=== PATIENT | male | born 1990 | race African-American/Black ===

== ENCOUNTER 2016-12-13 20:16 | Emergency (ER) | payer OTHER ==
[2016-12-13 20:30] VITALS: BP 132/82; PULSE 103; RESP 16; TEMP 99.7
--- NOTE | 2016-12-13 21:08 | ED ---
ENT HPI - General Chief complaint: ENT Stated complaint: Dental Pain Time Seen by Provider: 12/13/16 20:34 Source: patient Mode of arrival: ambulatory Limitations: no limitations - History of Present Illness Initial comments: Patient is a 26-year-old male presents to the emergency room for evaluation of dental pain. Patient states he has multiple broken teeth that have been causing him pain for the past 2-3 days. Patient states he's been using natural remedies with no relief of symptoms. Patient does state he has an appointment on Sunday with a dentist. Patient states his last dental appointment was 4 years ago. Patient states he's having extreme pain in his right lower teeth. Patient denies fevers or chills. Patient denies ear pain. Patient denies throat pain. Patient denies any facial edema. Patient denies trouble swallowing. Patient denies any recent dental trauma. - Related Data Previous Rx's Medication Instructions Recorded Clindamycin [Cleocin] 300 mg PO Q6H #40 capsule 12/13/16 Ibuprofen [Motrin] 600 mg PO Q6HR PRN #20 tab 12/13/16 Allergies Allergy/AdvReac Type Severity Reaction Status Date / Time Penicillins Allergy Unknown Verified 12/13/16 20:31 Childhood Review of Systems ROS Statement: Those systems with pertinent positive or pertinent negative responses have been documented in the HPI. ROS Other: All systems not noted in ROS Statement are negative. Past Medical History Past Medical History: No Reported History History of Any Multi-Drug Resistant Organisms: None Reported Past Surgical History: No Surgical Hx Reported Past Psychological History: No Psychological Hx Reported Smoking Status: Never smoker Past Alcohol Use History: None Reported Past Drug Use History: None Reported General Exam - General Exam Comments Initial Comments: sitting in exam room, no acute distress. Limitations: no limitations General appearance: alert, in no apparent distress Head exam: Present: atraumatic, normocephalic, normal inspection Eye exam: Present: normal appearance Expanded Mouth exam: Present: normal external inspection Teeth exam: Present: dental caries, fractured tooth # (fractured and deteriorating teeth numbers 30-32), dental tenderness # (30-32) Throat exam: normal inspection Neck exam: Present: normal inspection, full ROM. Absent: tenderness, lymphadenopathy Respiratory exam: Absent: respiratory distress Extremities exam: Present: normal inspection Back exam: Present: normal inspection Neurological exam: Present: alert, oriented X3, CN II-XII intact, normal gait Psychiatric exam: Present: normal affect, normal mood Skin exam: Present: warm, dry, intact, normal color. Absent: rash Course Vital Signs 12/13/16 20:27 Temperature 99.7 F H Pulse Rate 103 H Respiratory 16 Rate Blood Pressure 132/82 O2 Sat by Pulse 98 Oximetry Procedures - Nerve Block Consent Obtained: verbal consent Local Anesthetic Used: Marcaine 0.5% Amount of anesthesia used: 2 Side: right Intraoral Nerve Block: inferior alveolar Procedure Successful: Yes Patient Tolerated Procedure: well, no complications Medical Decision Making - Medical Decision Making Patient is a 26-year-old male presents to the emergency room for evaluation of dental pain. Patient placed on antibiotics and ibuprofen. Patient given a dental block. Patient states he has an appointment with the dentist on Sunday. Return parameters discussed. Disposition Clinical Impression: Pain due to dental caries Disposition: HOME SELF-CARE Condition: Good Instructions: Dental Caries (ED), Toothache (ED) Additional Instructions: Please follow up with a dentist. If you do not have a dentist, you may contact [facility]. Phone number is [phone] for existing clients. For new clients you may call [phone]. Another option is you have is the [employer] [facility]. Phone number is [phone]. Medications as directed. [place]water gargles. Cold fluids can sometimes help with pain as well. Return to the Emergency Room for any worsening or changing symptoms. Use cold compresses to the outside of the face. Prescriptions: Ibuprofen [Motrin] 600 mg PO Q6HR PRN #20 tab PRN Reason: Pain Clindamycin [Cleocin] 300 mg PO Q6H #40 capsule Referrals: None,Stated [Primary Care Provider] - 1-2 days Time of Disposition: 21:06
[2016-12-13] MEDS ORDERED: BUPIVACAINE (PF) 0.5% 30 ML VIAL MISCELLANE STA (21:16)
== END 2016-12-13 21:24 | disposition home or self-care (01) ==
LOC: EC 20:16
DX: K02.9 Dental caries, unspecified (principal); Z88.0 Allergy status to penicillin
CPT/HCPCS: 64400; 99282